=== PATIENT | male | born 1940 | race Caucasian/White ===

== ENCOUNTER 2020-10-29 19:26 | Inpatient (IN) ==
[2020-10-29 20:57] LABS: Bilirubin,Urine Negative (Negative); Blood,Urine Large (Negative); Clarity,Urine Clear (Clear); Color,Urine Yellow (Yellow); Glucose,Urine (UA) Normal (Normal); Ketones,Urine Negative (Negative); Leukocyte Esterase,Urine Trace (Negative); Nitrite,Urine Negative (Negative); Protein,Urine 100 mg/dL (Neg-Trace); Urobilinogen,Urine Normal (Normal)
[2020-10-29 21:03] LABS: Bacteria,Urine Many per hpf (None-Few); RBC,Urine 15-30 per hpf (0-3); Squamous Epithelial Cell,Urine Few per hpf (None-Few)
[2020-10-29] MEDS ORDERED: cefTRIAXone 1,000 MG in Water for inj. (sterile) 10 ML IVP ONE (21:08)
[2020-10-29] MEDS ORDERED: 0.9 % Sodium Chloride 1,000 ML IVC ONE (21:08)
[2020-10-29 21:57] LABS: Basophils % 0.1 %; Eosinophils % 0.2 %; Hematocrit 30.8 % (37.5-50.1); Hemoglobin 9.8 g/dL (12.9-16.9); Immature Granulocytes % 0.4 % (0-4); Lymphocytes # 1.6 K/mcL (0.6-4.6); Lymphocytes % 18.6 %; Mean Corpuscular HGB Conc 31.8 g/dL (31.6-35.5); Mean Corpuscular Hemoglobin 30.8 pg (28.0-33.3); Mean Corpuscular Volume 96.9 fL (83.0-100.0); Mean Platelet Volume 10.6 fL (9.4-12.4); Monocytes # 0.7 K/mcL (0.0-1.3); Monocytes % 8.3 %; Neutrophils # 6.1 K/mcL (1.6-8.9); Platelet Count 144 K/mcL (140-400); Red Blood Count 3.18 M/mcL (4.19-5.50); Red Cell Distribution Width 14.6 % (11.5-14.5); Segmented Neutrophils % 72.4 %; White Blood Count 8.5 K/mcL (4.3-11.1)
[2020-10-29 22:03] LABS: INR 1.2; Prothrombin Time 13.6 Seconds (9.4-12.1)
[2020-10-29 22:06] LABS: Activated Partial Thrombo Time 26.4 Seconds (26.0-36.0)
[2020-10-29 22:14] LABS: Alanine Aminotransferase 8 Units/L (7-52); Albumin 3.4 g/dL (3.5-5.7); Albumin/Globulin Ratio 1.3 (1.1-2.2); Alkaline Phosphatase 63 Units/L (34-104); Aspartate Amino Transferase 12 Units/L (13-39); BUN/Creatinine Ratio 18 (6-26); Bilirubin,Total 0.7 mg/dL (0.3-1.0); Blood Urea Nitrogen 63 mg/dL (8-23); Calcium 9.1 mg/dL (8.6-10.3); Carbon Dioxide 20 mEq/L (23-29); Chloride 107 mEq/L (98-107); Globulin 2.6 g/dL (2.4-3.5); Glucose 114 mg/dL (70-105); Magnesium 1.8 mg/dL (1.6-2.6); Osmolality,Calculated 299 (280-300); Potassium 4.6 mEq/L (3.5-5.1); Sodium 135 mEq/L (136-145); eGFR For African Americans 20 (> 60); eGFR For Non-African Americans 17 (> 60)
[2020-10-29] MEDS ORDERED: Water for inj. (sterile) 10 ML ONE (22:14)
[2020-10-29 22:15] LABS: Troponin I < 0.03 ng/mL (< 0.04)
[2020-10-29 22:28] LABS: Thyroid Stimulating Hormone 0.679 mcIU/mL (0.340-5.600)
[2020-10-29] MEDS ORDERED: Ondansetron ODT 4 MG TAB.RAPDIS SL PRN (23:52)
[2020-10-29] MEDS ORDERED: Naloxone 0.4 MG/ML INJ IVP PRN ×2 (23:52)
[2020-10-30] MEDS: 0.9 % Sodium Chloride 1,000 ML IVC SCH ×2 (00:33→10:18)
[2020-10-30] MEDS: atenoloL 25 MG TABLET PO SCH (09:37)
[2020-10-30] MEDS: Aspirin Enteric Coated 81 MG Tablet PO SCH (09:38)
[2020-10-30] MEDS: Finasteride 5 MG TABLET PO SCH (09:38)
[2020-10-30] MEDS: cefTRIAXone 1,000 MG in 0.9 % Sodium Chloride Mini Bag 100 ML IVPB SCH (09:38)
[2020-10-30] MEDS: Cyanocobalamin (B-12) 1,000 MCG TABLET PO SCH (09:39)
[2020-10-30] MEDS: Famotidine 20 MG TABLET PO SCH (09:39)
[2020-10-30] MEDS: allopurinoL 300 MG TABLET PO SCH (09:39)
[2020-10-30] MEDS: Cholecalciferol (D-3) 1,000 UNIT (25MCG) TABLET PO SCH (09:39)
[2020-10-30] MEDS: amLODIPine 5 MG TABLET PO SCH (09:40)
[2020-10-30 12:21] LABS: Calcium 8.6 mg/dL (8.6-10.3); Potassium 4.4 mEq/L (3.5-5.1)
[2020-10-30 12:29] LABS: Basophils % 0.3 %; Eosinophils # 0.1 K/mcL (0.0-0.6); Eosinophils % 1.1 %; Hemoglobin 9.2 g/dL (12.9-16.9); Immature Granulocytes % 0.1 % (0-4); Lymphocytes % 28.6 %; Mean Corpuscular HGB Conc 32.9 g/dL (31.6-35.5); Mean Corpuscular Hemoglobin 31.8 pg (28.0-33.3); Mean Corpuscular Volume 96.9 fL (83.0-100.0); Monocytes % 14.5 %; Neutrophils # 3.9 K/mcL (1.6-8.9); Platelet Count 131 K/mcL (140-400); Red Blood Count 2.89 M/mcL (4.19-5.50); Red Cell Distribution Width 14.7 % (11.5-14.5); Segmented Neutrophils % 55.4 %
[2020-10-31] MEDS: *HR* Heparin 5,000 UNIT/ML VIAL SQ SCH ×2 (05:23→18:02)
[2020-10-31 05:59] LABS: Basophils % 0.3 %; Eosinophils # 0.2 K/mcL (0.0-0.6); Eosinophils % 2.7 %; Hematocrit 29.1 % (37.5-50.1); Hemoglobin 9.3 g/dL (12.9-16.9); Immature Granulocytes % 0.5 % (0-4); Lymphocytes # 2.3 K/mcL (0.6-4.6); Lymphocytes % 28.8 %; Mean Corpuscular Hemoglobin 31.1 pg (28.0-33.3); Mean Corpuscular Volume 97.3 fL (83.0-100.0); Mean Platelet Volume 11.2 fL (9.4-12.4); Monocytes # 0.9 K/mcL (0.0-1.3); Monocytes % 11.7 %; Neutrophils # 4.4 K/mcL (1.6-8.9); Platelet Count 127 K/mcL (140-400); Red Blood Count 2.99 M/mcL (4.19-5.50); Red Cell Distribution Width 14.7 % (11.5-14.5); White Blood Count 7.9 K/mcL (4.3-11.1)
[2020-10-31 06:18] LABS: Calcium 8.6 mg/dL (8.6-10.3); Potassium 4.5 mEq/L (3.5-5.1)
[2020-10-31] MEDS: Cholecalciferol (D-3) 1,000 UNIT (25MCG) TABLET PO SCH (09:42)
[2020-10-31] MEDS: amLODIPine 5 MG TABLET PO SCH (09:42)
[2020-10-31] MEDS: Finasteride 5 MG TABLET PO SCH (09:42)
[2020-10-31] MEDS: Cyanocobalamin (B-12) 1,000 MCG TABLET PO SCH (09:43)
[2020-10-31] MEDS: cefTRIAXone 1,000 MG in 0.9 % Sodium Chloride Mini Bag 100 ML IVPB SCH (09:43)
[2020-10-31] MEDS: allopurinoL 300 MG TABLET PO SCH (09:43)
[2020-10-31] MEDS: Famotidine 20 MG TABLET PO SCH (09:43)
[2020-10-31] MEDS: Aspirin Enteric Coated 81 MG Tablet PO SCH (09:43)
[2020-10-31 22:27] LABS: Calcium 8.5 mg/dL (8.6-10.3); Potassium 4.3 mEq/L (3.5-5.1)
[2020-10-31] MEDS ORDERED: *HR* Heparin 5,000 UNIT/ML VIAL IVP ONE (22:35)
[2020-10-31] MEDS ORDERED: *HR* Heparin 5,000 UNIT/ML VIAL IVP PRN ×2 (22:35)
[2020-10-31] MEDS ORDERED: Heparin 25,000UNIT/250ML 1/2NS 25,000 UNIT/250 ML IV.SOLN IVC SCH ×2 (22:45→23:30)
[2020-10-31 22:46] LABS: Hemoglobin 9.4 g/dL (12.9-16.9); Mean Corpuscular HGB Conc 32.4 g/dL (31.6-35.5); Mean Corpuscular Hemoglobin 31.5 pg (28.0-33.3); Mean Corpuscular Volume 97.3 fL (83.0-100.0); Mean Platelet Volume 11.2 fL (9.4-12.4); Platelet Count 136 K/mcL (140-400); Red Blood Count 2.98 M/mcL (4.19-5.50); Red Cell Distribution Width 14.7 % (11.5-14.5); White Blood Count 7.2 K/mcL (4.3-11.1)
[2020-10-31 23:04] LABS: Heparin anti-factor XA UFH 0.06 IU/mL (0.30-0.70); Prothrombin Time 12.1 Seconds (9.4-12.1)
[2020-10-31] MEDS: atenoloL 25 MG TABLET PO SCH (23:28)
[2020-11-01 04:21] LABS: Basophils % 0.5 %; Eosinophils # 0.3 K/mcL (0.0-0.6); Eosinophils % 3.6 %; Hematocrit 30.5 % (37.5-50.1); Hemoglobin 9.6 g/dL (12.9-16.9); Immature Granulocytes % 0.6 % (0-4); Lymphocytes # 2.8 K/mcL (0.6-4.6); Lymphocytes % 33.4 %; Mean Corpuscular HGB Conc 31.5 g/dL (31.6-35.5); Mean Corpuscular Hemoglobin 30.8 pg (28.0-33.3); Mean Corpuscular Volume 97.8 fL (83.0-100.0); Monocytes # 0.9 K/mcL (0.0-1.3); Monocytes % 10.5 %; Neutrophils # 4.3 K/mcL (1.6-8.9); Platelet Count 132 K/mcL (140-400); Red Blood Count 3.12 M/mcL (4.19-5.50); Red Cell Distribution Width 14.8 % (11.5-14.5); Segmented Neutrophils % 51.4 %; White Blood Count 8.4 K/mcL (4.3-11.1)
[2020-11-01 04:37] LABS: Calcium 8.5 mg/dL (8.6-10.3); Potassium 4.2 mEq/L (3.5-5.1)
[2020-11-01] MEDS ORDERED: Heparin 25,000UNIT/250ML 1/2NS 25,000 UNIT/250 ML IV.SOLN IVC SCH (06:15)
[2020-11-01] MEDS: Aspirin Enteric Coated 81 MG Tablet PO SCH (08:44)
[2020-11-01] MEDS: Famotidine 20 MG TABLET PO SCH (08:44)
[2020-11-01] MEDS: Cyanocobalamin (B-12) 1,000 MCG TABLET PO SCH (08:44)
[2020-11-01] MEDS: allopurinoL 300 MG TABLET PO SCH (08:44)
[2020-11-01] MEDS: amLODIPine 5 MG TABLET PO SCH (08:44)
[2020-11-01] MEDS: Cholecalciferol (D-3) 1,000 UNIT (25MCG) TABLET PO SCH (08:44)
[2020-11-01] MEDS: Finasteride 5 MG TABLET PO SCH (08:44)
[2020-11-01] MEDS ORDERED: Acetaminophen 325 MG TABLET PO ONE (12:37)
[2020-11-01] MEDS ORDERED: Perflutren Lipid Microsphere 1.3 ML in 0.9 % Sodium Chloride 8.7 ML IVP PRN (14:35)
[2020-11-01 19:16] VITALS: BP 127/70
== END 2020-11-01 19:30 | DRG 690 ==
LOC: EMEROOGRE 19:26 → INPGRE 19:26
PROVIDERS: ADMIT Family Medicine; ATTEND Family Medicine